=== PATIENT | male | born 1990 | race Caucasian/White ===

== ENCOUNTER → 2020-10-25 07:22 | Outpatient (CLI) | payer SELFPAY, OTHER ==
--- NOTE | 2020-10-25 07:45 | MRI_ITS ---
STUDY: MRI RIGHT KNEE REASON FOR EXAM: Medial right knee pain for one week status post injury. TECHNIQUE: Standardized fat and water weighted pulse sequences were obtained in all 3 orthogonal planes. COMPARISON: None. FINDINGS: Normal medial meniscus. Normal hyaline cartilage of the medial femorotibial compartment. Normal medial femoral condyle and tibial plateau. There is a mild sprain of the proximal medial collateral ligament (T2 axial image 15; T2 coronal image 18). Normal distal semimembranosus, gracilis and semitendinosus tendons. Normal lateral meniscus. Normal hyaline cartilage of the lateral femorotibial compartment. Normal lateral femoral condyle and tibial plateau. Normal proximal tibiofibular articulation. Normal lateral collateral (fibular) ligament. Normal popliteus tendon. Normal biceps femoris tendon. Normal anterior cruciate ligament (ACL). Normal posterior cruciate ligament (PCL). Normal congruent patellofemoral articulation. There is a focal chondral defect of the medial femoral trochlea near the apex measuring 0.7 cm in length (T2 sagittal series 8 images 12, 13) with subchondral bone edema. Normal medial and lateral patellar retinaculum. Normal visualized quadriceps tendon. Normal patellar tendon. Normal Hoffa''s fat pad. There is a [id number] sized joint effusion with mild extravasation of fluid. There is a thickened medial patellar plica (T2 axial image 14). There is a strain of the distal vastus lateralis muscle (T2 coronal images 16-19). The otherwise visualized osseous structures are unremarkable. MRI/Lower Ext Joint Only (Routine) IMPRESSION: Mild sprain of the medial collateral ligament. Focal chondral defect of the medial femoral trochlea. Distal vastus lateralis muscle strain. Thickened medial patellar plica. Joint effusion with mild extravasation of fluid. Electronically Signed: Avery Guerrero MD at 9:02 EST Tel , Service support ,
== END ==
PROVIDERS: Referring Provider Orthopaedic Surgery; Visit Provider Orthopaedic Surgery
DX: S83.91XA Sprain of unspecified site of right knee, initial encounter (principal)
CPT/HCPCS: 73721